=== PATIENT | male | born 1985 | race Caucasian/White ===

== ENCOUNTER 2016-09-02 12:18 | Emergency (ER) | payer BC ==
[~2016-09-02] VITALS: Ht 182.9 cm; Wt 97.5 kg
[2016-09-02 12:20] VITALS: BP 131/97
--- NOTE | 2016-09-02 12:50 | PHYS DOC ---
Past Medical History Past Medical History: No Pertinent History Past Surgical History: No Surgical History Alcohol Use: Occasionally Drug Use: None Adult General Chief Complaint Chief Complaint: ELBOW PROBLEM [facility] HPI Patient is a 30 year old male presents emergency department stating that he is having right elbow pain and discomfort. He states she's been having the pain for the last 2 days. He states that he wakes up with the pain and discomfort. He has taken Excedrin for the pain without much relief. 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 Patient denies any numbness or tingling down into his fingers. Patient is right-hand dominant. Peripheral pulses 2+ cap refill brisk less than 2 seconds patient with equal pleater bilaterally. Review of Systems Review of Systems Constitutional: Denies fever or chills [] Eyes: Denies change in visual acuity, redness, or eye pain [] HENT: Denies nasal congestion or sore throat [] Respiratory: Denies cough or shortness of breath [] Cardiovascular: No additional information not addressed in HPI [] GI: Denies abdominal pain, nausea, vomiting, bloody stools or diarrhea [] : Denies dysuria or hematuria [] Musculoskeletal: Denies back pain. C/o right elbow pain and discomfort Integument: Denies rash or skin lesions [] Neurologic: Denies headache, focal weakness or sensory changes [] Current Medications Current Medications Current Medications Medications (Trade) Dose Ordered Sig/Primitivo Start Time Stop Time Status Last Admin Dose Admin Ibuprofen (Motrin) 800 mg 1X ONCE 09/02/16 13:00 09/02/16 13:01 Allergies Allergies Allergies Coded Allergies Type Severity Reaction Last Updated Verified No Known Drug Allergies 05/15/14 No Physical Exam Physical Exam Constitutional: Well developed, well nourished, no acute distress, non-toxic appearance. [] HENT: Normocephalic, atraumatic, bilateral external ears normal, oropharynx moist, no oral exudates, nose normal. [] Eyes: PERRLA, EOMI, conjunctiva normal, no discharge. [] Neck: Normal range of motion, no tenderness, supple, no stridor. [] Cardiovascular:Heart rate regular rhythm, no murmur [] Lungs & Thorax: Bilateral breath sounds clear to auscultation [] Skin: Warm, dry, no erythema, no rash. [] Back: No tenderness Extremities: Right elbow tenderness, no cyanosis, no clubbing, ROM intact, no edema. Patient unable to completely straighten the right arm out. He is able to bend the arm without difficulty. Peripheral pulses 2+ cap refill brisk less than 2 seconds. Good sensation noted. No bruising or discoloration noted slight swelling noted around the elbow area. Neurologic: Alert and oriented X 3, normal motor function, normal sensory function, no focal deficits noted. [] Psychologic: Affect normal, judgement normal, mood normal. [] Current Patient Data Vital Signs Vital Signs Date Time Temp Pulse Resp B/P Pulse Ox O2 Delivery O2 Flow Rate FiO2 09/02/16 12:20 98.1 101 18 97 Room Air 98.1 EKG EKG [] Radiology/Procedures Radiology/Procedures [facility] [address] [place] [address] IMAGING REPORT Signed PATIENT: JUDY YA ACCOUNT: [id number] : 1985 LOCATION: ER AGE: 30 SEX: M EXAM STATUS: REG ER ORD. PHYSICIAN: AICHA BELLO APRN REASON: right elbow injury PROCEDURE: ELBOW RIGHT 3V Indication: Injury to right elbow 3 days ago. Swelling and bruising. Technique: 3 views of the right elbow are submitted for review. No comparison is available. Findings: No acute fracture or dislocation is identified. There is no displacement of fat pads/joint effusion. Impression: Negative for fracture. DICTATED and SIGNED BY: NIMESH CHASE MD DATE: 09/02/16 1244 CC: AICHA BELLO APRN; WANDY ELLIOTT MD ~ [] Course & Med Decision Making Course & Med Decision Making Pertinent Labs and Imaging studies reviewed. (See chart for details) X-rays were negative for any fractures. Recommended patient to take ibuprofen 800 mg every 8 hours with food stop taking few develop an upset stomach. Ice packs on 20 minutes off 20 minutes several times a day. Also recommended patient to rest the arm for the next 2 days. Also recommended patient to make sure that he is using proper body mechanics when lifting. Patient will be encouraged to follow-up with orthopedic in the next week if he continues to have pain and discomfort. Signs symptoms to return back to emergency department been provided. Patient agrees with discharge instructions treatment regimens and follow-up recommendations. [] Dragon Disclaimer Dragon Disclaimer This electronic medical record was generated, in whole or in part, using a voice recognition dictation system. Departure Departure Impression: Primary Impression: Overuse syndrome of elbow Disposition: HOME, SELF-CARE Condition: STABLE Referrals: WANDY ELLIOTT MD (PCP) Patient Instructions: Tennis Elbow, [id number] Additional Instructions: Activity as tolerated Medication as prescribed, Ibuprofen Ibuprofen 800 mg every 8 hours with food ice packs on 20 minutes and off 20 minutes several times a day elevation as much as possible Followup with orthopedic in 1 week if you still have pain Return to emergency department as needed for signs and symptoms that become worse. AICHA BELLO APRN Sep 02, 2016 12:50
[2016-09-02] MEDS ORDERED: IBUPROFEN 800 MG TABLET. PO ONE (13:00)
== END 2016-09-02 14:32 | disposition home or self-care (01) ==
LOC: ER 12:18
DX: M70.841 Other soft tissue disorders related to use, overuse and pressure, right hand (principal); X50.0XXA Overexertion from strenuous movement or load, initial encounter; Y93.89 Activity, other specified; Y99.0 Civilian activity done for income or pay; Y92.69 Other specified industrial and construction area as the place of occurrence of the external cause
CPT/HCPCS: 73080; 99284

== ENCOUNTER 2018-03-01 06:29 | Emergency (ER) | payer BC ==
[~2018-03-01] VITALS: Ht 175.3 cm; Wt 95.3 kg
--- NOTE | 2018-03-01 07:09 | PHYS DOC ---
Past Medical History Past Medical History: No Pertinent History Past Surgical History: No Surgical History Alcohol Use: Occasionally Drug Use: None Adult General Chief Complaint Chief Complaint: BACK PAIN - NO INJURY HPI HPI Patient is a 32 year old male presented to the ER today for evaluation of lower back pain that he has been experienced for about 2-3 days. Patient said he went to a concert over the weekend, was sitting on a plastic chair for along time, then woke up the next day with lower back pain, hurt worse when he stands up or walking. He denied any bowel or bladder incontinence. Patient denied any injury, no abdominal pain, no nausea or vomiting, no urinary symptoms. Patient has no previous back problem. Review of Systems Review of Systems Constitutional: Denies fever or chills [] Eyes: Denies change in visual acuity, redness, or eye pain [] HENT: Denies nasal congestion or sore throat [] Respiratory: Denies cough or shortness of breath [] Cardiovascular: No additional information not addressed in HPI [] GI: Denies abdominal pain, nausea, vomiting, bloody stools or diarrhea [] : Denies dysuria or hematuria [] Musculoskeletal: Positive for lower back pain Integument: Denies rash or skin lesions [] Neurologic: Denies headache, focal weakness or sensory changes [] Endocrine: Denies polyuria or polydipsia [] All other systems were reviewed and found to be within normal limits, except as documented in this note. Current Medications Current Medications Current Medications Medications (Trade) Dose Ordered Sig/Primitivo Start Time Stop Time Status Last Admin Dose Admin Cyclobenzaprine HCl (Flexeril) 10 mg 1X ONCE 03/01/18 07:15 03/01/18 07:16 DC 03/01/18 07:31 10 MG Ketorolac Tromethamine (Toradol Im) 60 mg 1X ONCE 03/01/18 07:15 03/01/18 07:16 DC 03/01/18 07:31 60 MG Prednisone (Prednisone) 60 mg 1X ONCE 03/01/18 07:15 03/01/18 07:16 DC 03/01/18 07:31 60 MG Allergies Allergies Allergies Coded Allergies Type Severity Reaction Last Updated Verified No Known Drug Allergies 05/15/14 No Physical Exam Physical Exam Constitutional: Well developed, well nourished, no acute distress, non-toxic appearance. [] HENT: Normocephalic, atraumatic, bilateral external ears normal, oropharynx moist, no oral exudates, nose normal. [] Eyes: PERRLA, EOMI, conjunctiva normal, no discharge. [] Neck: Normal range of motion, no tenderness, supple, no stridor. [] Cardiovascular:Heart rate regular rhythm, no murmur [] Lungs & Thorax: Bilateral breath sounds clear to auscultation [] Abdomen: Bowel sounds normal, soft, no tenderness, no masses, no pulsatile masses. [] Skin: Warm, dry, no erythema, no rash. [] Back: lower lumbar spine area tenderness to palpation around L3/L4/L5 AREA, NO BONY STEP OFF. Extremities: No tenderness, no cyanosis, no clubbing, ROM intact, no edema. [] Neurologic: Alert and oriented X 3, normal motor function, normal sensory function, no focal deficits noted. GOOD [place]ATELLA REFLEXES SYMMETRICALLY. Psychologic: Affect normal, judgement normal, mood normal. [] Current Patient Data Vital Signs Vital Signs Date Time Temp Pulse Resp B/P (MAP) Pulse Ox O2 Delivery O2 Flow Rate FiO2 03/01/18 06:41 98.6 67 18 146/92 (110) 100 Room Air 98.6 EKG EKG [] Radiology/Procedures Radiology/Procedures [][facility] [address], [place] [id number] IMAGING REPORT Signed PATIENT: JUDY YA ACCOUNT: [id number] : 1985 LOCATION: ER AGE: 32 SEX: M EXAM STATUS: REG ER ORD. PHYSICIAN: DEB HERRERA DO REASON: lower back pain for 3 days PROCEDURE: LUMBAR SPINE 2-3V Lumbar spine, 3 views, 03/01/2018: HISTORY: Bilateral low back pain The lumbar vertebral heights are well-maintained. The intervertebral disc spaces are well preserved. No fracture or dislocation is identified. The paraspinous soft tissues are unremarkable. IMPRESSION: No significant lumbar spine abnormality is detected. Electronically signed by: Osorio Villaseñor MD (03/01/2018 7:54 AM) [facility] DICTATED and SIGNED BY: OSORIO VILLASEÑOR MD DATE: 03/01/18 0753 Impressions: LOWER BACK PAIN Course & Med Decision Making Course & Med Decision Making Pertinent Labs and Imaging studies reviewed. (See chart for details) [] Dragon Disclaimer Luis Fon Disclaimer This electronic medical record was generated, in whole or in part, using a voice recognition dictation system. Departure Departure Impression: Primary Impression: Lower back pain Disposition: HOME, SELF-CARE Condition: STABLE Referrals: WANDY ELLIOTT MD (PCP) FOLLOW UP WITH YOUR PCP Patient Instructions: Back Pain, Adult Scripts Ibuprofen (IBUPROFEN) 800 Mg Tablet 800 MG PO PRN Q8HRS PRN for INFLAMMATION, #30 TAB Prov: DEB HERRERA DO 03/01/18 Prednisone (PREDNISONE) 50 Mg Tablet 1 TAB PO DAILY for 7 Days, #7 TAB Prov: DEB HERRERA DO 03/01/18 Cyclobenzaprine Hcl (CYCLOBENZAPRINE HCL) 10 Mg Tablet 1 TAB PO TID for MUSCLE SPASM, #30 TAB Prov: DEB HERRERA DO 03/01/18 DEB HERRERA DO Mar 01, 2018 07:09
[2018-03-01] MEDS: KETOROLAC 60 MG/2 ML INJ. IM ONE (07:31)
[2018-03-01] MEDS: CYCLOBENZAPRINE 10 MG TABLET. PO ONE (07:31)
[2018-03-01] MEDS: predniSONE 20 MG TABLET PO ONE (07:31)
[2018-03-01 07:34] VITALS: BP 150/88
--- NOTE | 2018-03-01 07:57 | RAD ---
Lumbar spine, 3 views, 03/01/2018: HISTORY: Bilateral low back pain The lumbar vertebral heights are well-maintained. The intervertebral disc spaces are well preserved. No fracture or dislocation is identified. The paraspinous soft tissues are unremarkable. IMPRESSION: No significant lumbar spine abnormality is detected. Electronically signed by: Osorio Villaseñor MD (03/01/2018 7:54 AM) [facility]
[2018-03-01] MEDS ORDERED: IBUP-1060 PO (08:16)
[2018-03-01] MEDS ORDERED: CYCL10TA2 PO (08:16)
[2018-03-01] MEDS ORDERED: PRED50TA PO (08:16)
== END 2018-03-01 08:32 | disposition home or self-care (01) ==
LOC: ER 06:29
DX: M54.5 Low back pain (principal)
CPT/HCPCS: 72100; 96372; 99284; J1885; J7512

== ENCOUNTER 2021-03-09 23:35 | Emergency (ER) | payer BC ==
[~2021-03-09] VITALS: Ht 175.3 cm; Wt 97.0 kg
[~2021-03-09 23:35] MED LIST: CYCL10TA2 PO; IBUP-1060 PO; PRED50TA PO
[2021-03-10] MEDS ORDERED: IBUPROFEN 200 MG TABLET. PO ONE (00:15)
[2021-03-10 00:45] VITALS: BP 142/89
[2021-03-10] MEDS ORDERED: METH4TAB2 PO (01:03)
[2021-03-10] MEDS ORDERED: ALBU2.5V8 INH (01:03)
--- NOTE | 2021-03-10 01:05 | PHYS DOC ---
Past Medical History Past Medical History: No Pertinent History Past Surgical History: No Surgical History Smoking Status: Former Smoker Alcohol Use: None Drug Use: None General Adult EDM: Chief Complaint: GENERALIZED BODY ACHES HPI: HPI: Patient is a 35 year old male who presents with 1 day of cough, body aches, sore throat. He is not vaccinated for Covid. He is not taking any medications. He has no other known health problems. He denies chest pain, shortness of breath, nausea, vomiting, diarrhea, abdominal pain, headache, dizziness, numbness or tingling, weakness. Review of Systems: Review of Systems: Constitutional: Denies fever or +chills. [] Eyes: Denies change in visual acuity. [] HENT: Denies nasal congestion or +sore throat. [] Respiratory: +cough or denies shortness of breath. [] Cardiovascular: Denies chest pain or edema. [] GI: Denies abdominal pain, nausea, vomiting, bloody stools or diarrhea. [] : Denies dysuria. [] Musculoskeletal: Denies back pain or joint pain. +bodyaches[] Integument: Denies rash. [] Neurologic: Denies headache, focal weakness or sensory changes. [] Endocrine: Denies polyuria or polydipsia. [] Lymphatic: Denies swollen glands. [] Psychiatric: Denies depression or anxiety. [] Heart Score: C/O Chest Pain: No Current Medications: Current Medications Medications (Trade) Dose Ordered Sig/Primitivo Start Time Stop Time Status Last Admin Dose Admin Ibuprofen (Motrin) 600 mg 1X ONCE 03/10/21 00:15 03/10/21 00:16 DC 03/10/21 00:21 600 MG Allergies: Allergies: Allergies Coded Allergies Type Severity Reaction Last Updated Verified No Known Drug Allergies 05/15/14 No Physical Exam: PE: Constitutional: Well developed, well nourished, no acute distress, non-toxic appearance. [] HENT: Normocephalic, atraumatic, bilateral external ears normal, oropharynx moist, no oral exudates, nose normal. [] Eyes: PERRLA, EOMI, conjunctiva normal, no discharge. [] Neck: Normal range of motion, no tenderness, supple, no stridor. [] Cardiovascular:Heart rate regular rhythm, no murmur [] Lungs & Thorax: Bilateral breath sounds clear to auscultation [] Abdomen: Bowel sounds normal, soft, no tenderness, no masses, no pulsatile masses. [] Skin: Warm, dry, no erythema, no rash. [] Back: No tenderness, no CVA tenderness. [] Extremities: No tenderness, no cyanosis, no clubbing, ROM intact, no edema. [] Neurologic: Alert and oriented X 3, normal motor function, normal sensory function, no focal deficits noted. [] Psychologic: Affect normal, judgement normal, mood normal. [] Normal Physical Exam Current Patient Data: Vital Signs: Vital Signs Date Time Temp Pulse Resp B/P (MAP) Pulse Ox O2 Delivery O2 Flow Rate FiO2 03/09/21 23:45 99.1 88 18 129/88 (102) 97 99.1 EKG: EKG: [] Radiology/Procedures: Radiology/Procedures: [] Course & Med Decision Making: Course & Med Decision Making Pertinent Labs and Imaging studies reviewed. (See chart for details) COVID-19 CRITERIA: The patient was evaluated during the global COVID-19 pandemic, and that diagnosis was suspected/considered upon their initial presentation. Their evaluation, treatment and testing was consistent with current guidelines for patients who present with complaints or symptoms that may be related to COVID-19. See HPI. Alert and oriented x4. Ambulatory with a steady gait. Speaks in full clear sentences. Cap refill less than 2 seconds. Skin pink warm and dry. Throat is pink without exudates or swelling. Rapid strep is negative. Lungs are clear to auscultation all lobes. Rapid Covid is positive. Vital signs are within normal limits. Patient is given ibuprofen in the ED. I will send him home with a Medrol Dosepak and inhaler. [] Dragon Disclaimer: Dragon Disclaimer: This electronic medical record was generated, in whole or in part, using a voice recognition dictation system. Departure Departure Impression: Primary Impression: COVID-19 Disposition: 01 HOME / SELF CARE / HOMELESS Condition: STABLE Referrals: WANDY ELLIOTT MD (PCP) Patient Instructions: Cough, Adult, Fever, Adult, Sore Throat Additional Instructions: Drink plenty of fluids. Take Tylenol or ibuprofen for your pain or fever. Rest. Quarantine. If you begin having severe chest pain or severe shortness of breath or you cannot keep down any fluids return to the emergency room. Take the medication as prescribed. You have been tested for or diagnosed with COVID-19. It is an infection caused by a new type of coronavirus. COVID-19 will cause cold-like or mild flu symptoms in most. It can cause more severe symptoms like problems breathing in some. There is no treatment for COVID-19. The body will clear the infection over time. Self-care will help to ease discomfort. Steps to Take: Self-Care Rest as needed. Healthy habits may help you feel better. Steps include: Choose healthy foods including fruits and vegetables. Drink water throughout the day. Get plenty of sleep each night. If you smoke, try to quit. It may ease breathing. Avoid alcohol. Keep Others Healthy The virus can spread to others. Droplets are released every time you sneeze or cough. The droplets can get into the mouth, nose, or eyes of people near you and lead to infection. To lower the chances of spreading COVID-19 to others: Stay at home until your doctor has said it is safe to leave. If you tested positive this will mean staying isolated until both of the following are true: At least 7 days have passed since the start of illness. You are free of fever for at least 72 hours without the use of medicine. During this time: - Avoid public areas, events, or transportation. Do not return to work or school until your doctor has said it is safe to do so. - Call ahead if you need to go to a medical center. Let them know you may have COVID-19. It will help them guide you where to go. They may also ask you to wear a facemask when you come to the office. - If you call for emergency medical services, let them know you may have COVID- 19. While at home: - Try to avoid close contact with others. Stay about 6 feet away. - If possible, spend most of your time in a separate room from others. - Use a face mask if you will be in close contact with others such as sharing a room or vehicle. - Have someone wipe down common surfaces in the home. Use household microbiological lab technician every day on areas like doorknobs, counters, or sinks. - Cough or sneeze into a tissue. Throw the tissue away right after use. If a tissue is not available, cough or sneeze into your elbow. - Wash your hands often. Wash them after sneezing or coughing. Use soap and water and wash for at least 20 seconds. Alcohol based hand fish cleaner machine tender can be used if soap and water is not available. - Do not prepare food for others. Avoid sharing personal items like forks, spoons, or toothbrushes. - Avoid close contact with pets while you are sick. There is no evidence of the virus passing to pets. This is a safety step until more is known about this virus. Isolation can be frustrating. Social interaction can help. Keep in touch with friends and family through phone and tech options. You can still interact with others in your home, just keep a safe distance of about 6 feet. Follow-up: Your doctors office will check in with you to see if there are any changes in your health. You may be asked to keep track of symptoms to share with them. They will also let you know when you are clear to be in public again. Problems to Look Out For: Contact your doctor if your recovery is not going as you expect. Get emergency care if you have problems such as: - Trouble breathing - Nonstop chest pain or pressure - Changes in awareness, confusion, or problems waking - Lips or face have bluish color - Worsening of symptoms If you think you have an emergency, call for emergency medical services right away. As taken from [facility] Albuterol Sulfate (PROAIR HFA INHALER) 8.5 Gm Hfa.aer.ad 1 PUFF INH PRN Q6HRS PRN for SHORTNESS OF BREATH, #1 EACH 0 Refills Prov: AICHA WAYNE ACCOUNT RELATIONSHIP MANAGER 03/10/21 Methylprednisolone (MEDROL) 4 Mg Tab.ds.pk 1 PKG PO UD, #1 PKG Prov: AICHA WAYNE ACCOUNT RELATIONSHIP MANAGER 03/10/21 AICHA WAYNE APRN Mar 10, 2021 01:05
== END 2021-03-10 01:13 | disposition home or self-care (01) ==
LOC: ER 23:35
DX: U07.1 COVID-19 (principal); Z87.891 Personal history of nicotine dependence
CPT/HCPCS: 87070; 87426; 87880; 99283

== ENCOUNTER 2021-08-06 04:54 | Emergency (ER) | payer BC ==
[~2021-08-06] VITALS: Ht 177.8 cm; Wt 97.7 kg
[~2021-08-06 04:54] MED LIST changes: +ALBU2.5V8 INH; +CYCL10TA19 PO; -CYCL10TA2 PO; +METH4TAB2 PO
[2021-08-06 05:07] VITALS: BP 154/90
--- NOTE | 2021-08-06 05:23 | ED.ADGEN ---
Past Medical History Past Medical History: No Pertinent History Past Surgical History: No Surgical History Smoking Status: Former Smoker Alcohol Use: None Drug Use: None General Adult EDM: Chief Complaint: FEVER HPI: HPI: Patient is a 35 year old male coming in for fever and fatigue with body aches. Patient states he went to work and took a rapid Covid test which was negative. He took acetaminophen which resolved his symptoms. Patient is also complains of a scratchy throat. Denies any chest pain or shortness of breath, GI complaints. Patient's tested positive for COVID-19 a few days ago. Neither of them are vaccinated against COVID-19 Review of Systems: Review of Systems: All other systems within normal limits except for as noted in the HPI Allergies: Allergies: Allergies Coded Allergies Type Severity Reaction Last Updated Verified No Known Drug Allergies 05/15/14 No Physical Exam: PE: Constitutional: Well developed, well nourished, no acute distress, non-toxic appearance. [] HENT: Normocephalic, atraumatic, bilateral external ears normal, nose normal. [] Eyes: PERRLA, conjunctiva normal, no discharge. [] Neck: No rigidity, supple, no stridor. [] Cardiovascular: Regular rate and rhythm, brisk cap refill [] Lungs & Thorax: Non labored symmetric respirations, no tachypnea or respiratory distress. Oxygen saturation 98%, lungs clear to auscultation [] Abdomen: Soft, nondistended. Skin: Warm, dry, no erythema, no rash. [] Back: Unremarkable Extremities: No deformities, range of motion grossly intact, no lower extremity edema [] Neurologic: Alert and oriented X 3, no focal deficits noted. [] Psychologic: Affect normal, judgement normal, mood normal. [] EKG: EKG: [] Heart Score: C/O Chest Pain: No Risk Factors: Risk Factors: DM, Current or recent (<one month) smoker, HTN, HLP, family history of CAD, obesity. Risk Scores: Score 0 - 3: 2.5% MACE over next 6 weeks - Discharge Home Score 4 - 6: 20.3% MACE over next 6 weeks - Admit for Clinical Observation Score 7 - 10: 72.7% MACE over next 6 weeks - Early Invasive Strategies Radiology/Procedures: Radiology/Procedures: [] Course & Med Decision Making: Course & Med Decision Making Discussed with patient that at this time we are very low on her PCR test and only offering rapids. Discussed that since he is so early infections rapid was likely negative because there was no no virus accumulation and that we can go ahead and assume that since his is positive that he is to. Discussed we will give a note for work and advised him to follow-up in 5 days for a PCR test at a Covid testing facility. Discussed symptomatic treatment and return precautions Oscar Disclaimer: Ocsar Disclaimer: This electronic medical record was generated, in whole or in part, using a voice recognition dictation system. Departure Departure Impression: Primary Impression: COVID-19 Disposition: HOME / SELF CARE / HOMELESS Condition: STABLE Referrals: WANDY ELLIOTT MD (PCP) Additional Instructions: Follow-up at a Covid testing site for a PCR. Recommend signing up today to ensure you have a slot in 5 days, August 11. May return to work after receiving a negative test result You have been tested for or diagnosed with COVID-19. It is an infection caused by a new type of coronavirus. COVID-19 will cause cold-like or mild flu symptoms in most. It can cause more severe symptoms like problems breathing in some. There is no treatment for COVID-19. The body will clear the infection over time. Self-care will help to ease discomfort. Steps to Take: Self-Care Rest as needed. Healthy habits may help you feel better. Steps include: Choose healthy foods including fruits and vegetables. Drink water throughout the day. Get plenty of sleep each night. If you smoke, try to quit. It may ease breathing. Avoid alcohol. Keep Others Healthy The virus can spread to others. Droplets are released every time you sneeze or cough. The droplets can get into the mouth, nose, or eyes of people near you and lead to infection. To lower the chances of spreading COVID-19 to others: Stay at home until your doctor has said it is safe to leave. If you tested positive this will mean staying isolated until both of the following are true: At least 7 days have passed since the start of illness. You are free of fever for at least 72 hours without the use of medicine. During this time: - Avoid public areas, events, or transportation. Do not return to work or school until your doctor has said it is safe to do so. - Call ahead if you need to go to a medical center. Let them know you may have COVID-19. It will help them guide you where to go. They may also ask you to wear a facemask when you come to the office. - If you call for emergency medical services, let them know you may have COVID- 19. While at home: - Try to avoid close contact with others. Stay about 6 feet away. - If possible, spend most of your time in a separate room from others. - Use a face mask if you will be in close contact with others such as sharing a room or vehicle. - Have someone wipe down common surfaces in the home. Use household cell maker every day on areas like doorknobs, counters, or sinks. - Cough or sneeze into a tissue. Throw the tissue away right after use. If a tissue is not available, cough or sneeze into your elbow. - Wash your hands often. Wash them after sneezing or coughing. Use soap and water and wash for at least 20 seconds. Alcohol based hand bobbin cleaner hand can be used if soap and water is not available. - Do not prepare food for others. Avoid sharing personal items like forks, spoons, or toothbrushes. - Avoid close contact with pets while you are sick. There is no evidence of the virus passing to pets. This is a safety step until more is known about this virus. Isolation can be frustrating. Social interaction can help. Keep in touch with friends and family through phone and tech options. You can still interact with others in your home, just keep a safe distance of about 6 feet. Follow-up: Your doctors office will check in with you to see if there are any changes in your health. You may be asked to keep track of symptoms to share with them. They will also let you know when you are clear to be in public again. Problems to Look Out For: Contact your doctor if your recovery is not going as you expect. Get emergency care if you have problems such as: - Trouble breathing - Nonstop chest pain or pressure - Changes in awareness, confusion, or problems waking - Lips or face have bluish color - Worsening of symptoms If you think you have an emergency, call for emergency medical services right away. As taken from [facility] CARLOS POSADA MD Aug 06, 2021 05:23
== END 2021-08-06 05:30 | disposition home or self-care (01) ==
LOC: ER 04:54
DX: U07.1 COVID-19 (principal); Z87.891 Personal history of nicotine dependence
CPT/HCPCS: 99281